=== PATIENT | male | born 1960 | race Caucasian/White ===

== ENCOUNTER 2017-12-11 08:27 | Inpatient (IN) | payer OTHER ==
[2017-11-20 10:35] VITALS: Ht 176.5 cm; Wt 128.8 kg
--- NOTE | 2017-11-20 11:26 | PAT Medication Instructions ---
Service Date Nov 20, 2017. Current Home Medication List Albuterol Hfa (Ventolin Hfa), 2-4 PUFFS INH Q6H PRN for SOB/Wheezing Aspirin Enteric Coated (Ecotrin Or Generic), 81 MG PO QAM Citalopram Hydrobromide (Celexa), 20 MG PO QPM Ergocalciferol (Vitamin D 57703 Unit), 50,000 UNIT PO WED/SUN Finasteride (Proscar), 5 MG PO QPM Fluticasone Prop/Salmeterol (Advair Diskus 250/50 60 Dose), 1 PUFF INH BID Gabapentin (Neurontin), 100 MG PO BID Losartan Potassium (Cozaar), 100 MG PO QAM Metoprolol Tartrate (Lopressor) (Lopressor), 25 MG PO BID Multivitamin (Multivitamin), 1 TAB PO QPM Omeprazole (Prilosec), 40 MG PO QAM Medication Instructions For Your Scheduled Surgery -Continue as directed: Ergocalciferol (Vitamin D 03017 Unit), 50,000 UNIT PO WED/SUN - Hold the following medications the morning of surgery: Losartan Potassium (Cozaar), 100 MG PO QAM - Contact your bilingual manager and surgeon for instructions for: Aspirin Enteric Coated (Ecotrin Or Generic), 81 MG PO QAM - Take the following medications the morning of surgery with a sip of water: Albuterol Hfa (Ventolin Hfa), 2-4 PUFFS INH Q6H PRN for SOB/Wheezing (if needed , and bring it with you to the hospital) Fluticasone Prop/Salmeterol (Advair Diskus 250/50 60 Dose), 1 PUFF INH BID Gabapentin (Neurontin), 100 MG PO BID Metoprolol Tartrate (Lopressor) (Lopressor), 25 MG PO BID Omeprazole (Prilosec), 40 MG PO QAM - Take the following medications as scheduled the night before surgery: Albuterol Hfa (Ventolin Hfa), 2-4 PUFFS INH Q6H PRN for SOB/Wheezing (if needed) Citalopram Hydrobromide (Celexa), 20 MG PO QPM Finasteride (Proscar), 5 MG PO QPM Fluticasone Prop/Salmeterol (Advair Diskus 250/50 60 Dose), 1 PUFF INH BID Gabapentin (Neurontin), 100 MG PO BID Metoprolol Tartrate (Lopressor) (Lopressor), 25 MG PO BID Multivitamin (Multivitamin), 1 TAB PO QPM If you have any questions please call us at [phone] or [phone] or [phone]
[2017-11-20 12:34] LABS: BASO % 0.3 %; BASO ABS # 0.02 K/uL (0-0.2); EOS % 1.3 %; HEMATOCRIT 36.7 % (42-52); HEMOGLOBIN 13.2 g/dL (14.0-18.0); IG# 0.02 K/uL (0.00-0.02); LYMPH % 24.6 %; LYMPH ABS # 1.89 K/uL (1.2-3.4); MEAN CELL VOLUME 84.4 fL (80-100); MEAN CORPUSCULAR HEMOGLOBIN 30.3 pg (25-34); MEAN PLATELET VOLUME 11.7 fL (7.4-10.4); MONO % 6.6 %; MONO ABS # 0.51 K/uL (0.11-0.59); NEUT % 66.9 %; NEUT ABS # 5.14 K/uL (1.4-6.5); PLATELET COUNT 188 K/uL (130-400); RED CELL DISTRIBUTION WIDTH CV 13.6 % (11.5-14.5); WHITE BLOOD COUNT 7.68 K/uL (4.8-10.8)
[2017-11-20 12:40] LABS: PTT PATIENT 26.4 SECONDS (21.0-31.0)
[2017-11-20 13:09] LABS: ALBUMIN 3.7 gm/dl (3.4-5.0); CALCIUM 8.9 mg/dl (8.5-10.1); CREATININE 1.12 mg/dl (0.60-1.40); POTASSIUM 4.2 mmol/L (3.5-5.1)
[2017-11-20 13:12] LABS: HEMOGLOBIN A1C 6.3 % (4.5-5.6)
--- NOTE | 2017-12-09 15:02 | History and Physical ---
History & Physical Date Dec 09, 2017. Chief Complaint right knee pain History of Present Illness The patient is a 57 year old male with complaints of chronic right knee pain for many years. He has been treated conservatively for multiple years but failed conservative management. He is now being set up for surgical management. Past Medical/Surgical History PMH: Aortic valve insufficiency and hx of aortic valve replacement, hearing loss , GERD, HTN, BPH, Asthma Past surgical hx: heart catheterization, aortic valve replacement, colonoscopy, right knee scope Fam. hx: noncontributory Social hx: Nonsmoker, occasional alcohol Allergies Coded Allergies: Ciprofloxacin (Verified Allergy, Unknown, BURNING AT INFUSION SITE RADIATING UP ARM, 11/20/17) Home Medications Scheduled Aspirin Enteric Coated (Ecotrin Or Generic), 81 MG PO QAM Citalopram Hydrobromide (Celexa), 20 MG PO QPM Ergocalciferol (Vitamin D 12417 Unit), 50,000 UNIT PO WED/SUN Finasteride (Proscar), 5 MG PO QPM Fluticasone Prop/Salmeterol (Advair Diskus 250/50 60 Dose), 1 PUFF INH BID Gabapentin (Neurontin), 100 MG PO BID Losartan Potassium (Cozaar), 100 MG PO QAM Metoprolol Tartrate (Lopressor) (Lopressor), 25 MG PO BID Multivitamin (Multivitamin), 1 TAB PO QPM Omeprazole (Prilosec), 40 MG PO QAM Scheduled PRN Albuterol Hfa (Ventolin Hfa), 2-4 PUFFS INH Q6H PRN for SOB/Wheezing Physical Examination Skin: warm/dry, no rash Eyes: normal inspection ENT: normal ENT inspection Head: normocephalic, atraumatic Neck: supple, no adenopathy, trachea midline Respiratory/Chest: lungs clear, normal breath sounds, no respiratory distress Cardiovascular: regular rate, rhythm Abdomen / GI: normal bowel sounds, non tender Extremities: + pertinent finding (Right knee: antalgic gait, painful PROM, + effusion. Tender at the medial and lateral joint spaces. +Crepitation. -5 degree extension to 110 degrees flexion.) Neurologic/Psych: no motor/sensory deficits, alert, oriented x 3 Diagnosis Right knee DJD Right knee flexion contracture Plan of Treatment Recommend a right TKA. All potential risks, benefits, complications, alternatives, and rehab have been discussed with the patient. At this time he wishes to proceed as indicated. He will be scheduled for 12.11.17 with ASA 81 mg BID x 30 days for DVT prophylaxis.
[2017-12-11] VITALS (9 sets, daily range): BP systolic 107–133; BP diastolic 64–84; PULSE 69–98; TEMP 36.4–37.3; O2SAT 97–99
[~2017-12-11] VITALS: Ht 176.5 cm; Wt 128.8 kg
[~2017-12-11 08:27] MED LIST: ACETAMINOPHEN 500 MG TAB PO SCH; ADVIN25/60 INH; ASPI81TA21 PO; BUPIVACAINE 0.5 % 5 MG/1 ML PF 10ML VIAL ONE; CEFAZOLIN 3000MG IV PUSH 22.5 ML IV SCH; CITA20TA9 PO; CeleBREX 200 MG CAP PO SCH; DEXAMETHASONE 4 MG TAB PO SCH; ERGO500037 PO; FAMOTIDINE 20 MG TAB PO SCH; FINA5TAB PO; GABA-112 PO; GABAPENTIN 600 MG PO SCH; LACTATED RINGER'S 1000ML 1,000 ML IV SCH; LACTATED RINGER'S 1000ML 500 ML IV SCH; LOSA1TAB38 PO; METO25TA56 PO; METOCLOPRAMIDE HCL 10 MG TAB PO SCH; MULT-506 PO; PRLSR20 PO; ROPIVACAINE 5MG/ML 30 ML 150 MG, BUPIVACAINE 0.5% MPF INJ 30 ML, EpINEphrine HCL INJ 0.... INFIL SCH; VNTHFA/IN INH
[2017-12-11] MEDS ORDERED: PROPOFOL IV EMULSION 10 MG/ML 20 ML VIAL IV ONE ×4 (09:05→12:35)
[2017-12-11] MEDS ORDERED: FENTANYL CITRATE INJ 50 MCG/1 ML 2 ML VIAL ONE (09:05)
[2017-12-11] MEDS ORDERED: ONDANSETRON INJ 2 MG/ML 2 ML VIAL ONE (09:05)
[2017-12-11] MEDS ORDERED: MIDAZOLAM HCL 1 MG/ML 2ML VIAL ONE ×2 (09:05→12:33)
[2017-12-11] MEDS ORDERED: LIDOCAINE HCL 2% 2 ML VIAL (20MG/ML) ONE (09:05)
[2017-12-11] MEDS ORDERED: DEXAMETHASONE SOD INJ 4 MG/ML VIAL ONE (09:05)
--- NOTE | 2017-12-11 09:27 | History & Physical Bridge Note ---
H&P Re-Evaluation Bridge Note: I have examined the patient, reviewed the History & Physical and in the interval since the performance of the History & Physical I have noted the following changes of clinical significance: No changes noted
[2017-12-11] MEDS ORDERED: POVIDONE-IODINE OP SOLN 30 ML BTL ONE (09:53)
[2017-12-11] MEDS ORDERED: BACITRACIN 50000 UNIT VIAL ONE (09:53)
[2017-12-11] MEDS ORDERED: ORTHO JOINT ANESTHETIC ONE (09:53)
[2017-12-11] MEDS ORDERED: SILVER SULFADIAZINE 1% CR 50 GM JAR EXT PRN (10:15)
[2017-12-11] MEDS ORDERED: MAGNESIUM HYDROXIDE SUSP 30 ML UDC PO PRN (10:15)
[2017-12-11] MEDS ORDERED: MoRPHine SULFATE 2 MG/ML CARP IV PRN (10:15)
[2017-12-11] MEDS ORDERED: SOD PHOSPHATE/SOD BIPHOSPHATE ENEMA 132 ML BTL PR PRN (10:15)
[2017-12-11] MEDS ORDERED: CEFAZOLIN IV 2,000 MG in DEXTROSE 5% 50ML 50 ML IV SCH (10:15)
[2017-12-11] MEDS ORDERED: BISACODYL 10 MG SUPP PR PRN (10:15)
[2017-12-11] MEDS ORDERED: TAMSULOSIN HCL 0.4 MG CAP PO PRN (10:15)
[2017-12-11] MEDS ORDERED: ONDANSETRON INJ 2 MG/ML 2 ML VIAL IV PRN ×2 (10:15→11:00)
[2017-12-11] MEDS ORDERED: ZOLPIDEM TARTRATE 5 MG TAB PO PRN (10:15)
[2017-12-11] MEDS ORDERED: ALBUTEROL HFA 8 GM INHALER INH PRN (10:15)
[2017-12-11] MEDS ORDERED: ALUMINUM/MAGNESIUM/SIMETH (MAALOX MAX) 30 ML UDC PO PRN (10:15)
[2017-12-11] MEDS: TRANEXAMIC ACID INJ 1,000 MG x 2 Bags IV SCH ×4 (10:22→16:25)
[2017-12-11] MEDS ORDERED: HYDROmorphone INJ 1 MG/ML SYR IV PRN (11:00)
[2017-12-11] MEDS ORDERED: ATROPINE SULFATE 0.1 MG/ML 5ML SYR IV PRN (11:00)
[2017-12-11] MEDS ORDERED: FENTANYL CITRATE INJ 50 MCG/1 ML 2 ML VIAL IV PRN (11:00)
[2017-12-11] MEDS ORDERED: EpHEDrine SULFATE INJ 50 MG/ML AMP IV PRN (11:00)
--- NOTE | 2017-12-11 13:14 | [facility] Post Operative Brief Note ---
Immediate Operative Summary Operative Date Dec 11, 2017. Pre-Operative Diagnosis Right knee Degenerative Joint Disease Right knee flexion contracture Post-Operative Diagnosis Right knee Degenerative Joint Disease Right knee flexion contracture Procedure(s) Performed Right total Knee Arthroplasty-Cemented Surgeon Dr. Chadwick Lead Ruby On Rails Developer Surgeon(s) Chris Clark PA-C Estimated Blood Loss 15 ml Findings Consistent with Post-Op Diagnosis Specimens A. Right knee bone and tissue Drains HV x 2 Anesthesia Type Spinal MAC (regional and intraarticular) Complication(s) none Disposition Accompanied Pt To Recover: no Disposition: Recovery Room / PACU
--- NOTE | 2017-12-11 13:45 | OPERATIVE REPORT ---
DATE OF OPERATION: 12/11/2017 PREOPERATIVE DIAGNOSES: 1. Right knee degenerative joint disease. 2. Mild flexion contracture, right knee. POSTOPERATIVE DIAGNOSES: Same. PROCEDURE: Right total knee arthroplasty using a [employer] II MRI matched total knee arthroplasty with size 6 femur, size 5 tibia, a 12-mm posterior stabilized polyethylene and a 38-mm patella. SURGEON: Sabino Chadwick DO BINDERY OPERATOR: Chris Clark PA-C, who was present for patient positioning, sterile prep and drape, management of retractors and instruments. He was present through the critical portions of the case including wound closure, application of sterile dressing and transport of the patient to recovery. ANESTHESIA: Spinal, monitored anesthesia care with adductor canal block and intra-articular local. SPECIMENS: Bone and tissue from the right knee. DRAINS: Hemovac x2. COMPLICATIONS: None. BLOOD LOSS: 15 mL. 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 He developed degenerative arthritis of the right knee. He attempted conservative management over several years including anti-inflammatories, use of an assistive device, physical therapy, physician directed home exercise, intra-articular steroid injections and intraarticular hyaluronic acid injections. The patient failed all measures. The patient had a radiograph of the right knee, which demonstrated a significant joint space loss with marginal osteophytes, subchondral sclerosis and formation of subchondral cysts. The patient was then scheduled for surgery as indicated. All potential risks, benefits, complications, alternatives, rehab, potential for incomplete relief of symptoms, need for surgery, DVT, PE, , persistent pain, swelling, scarring, weakness, neurovascular injury, wound complications, hardware failure, nonunion, and malunion were discussed with the patient. The patient decided to proceed with the procedure as indicated. DESCRIPTION OF PROCEDURE: The patient was taken to the Operating Suite and placed supine on the Operating Room table after the patient had been administered spinal epidural anesthetic and an adductor canal block in the preop holding area. The patient was sedated. Proper operative site was identified. The tourniquet was placed high on the right lower extremity. Right lower extremity was then sterilely prepped and draped in the usual fashion. Elevated and exsanguinated with an Esmarch bandage. Tourniquet inflated to 350 mmHg. Next a midline 10-blade scalpel incision was made directly over the midline of the distal femur and the medial one-third of the patella extending to the level of the tibial tubercle. The incision was deepened through the subcutaneous tissue and meticulous hemostasis was achieved with electrocautery. Full-thickness skin flaps were developed taking care to avoid neurovascular bundles. Next, median parapatellar capsular incision was made 10-blade scalpel after the superior medial corner had been marked with a marking pen for later reapproximation. Next, patella was everted. Soft tissue releases were performed of the knee including along the anterior medial corner to the level of the MCL which was protected and released adjacent to the MCL with Cui elevator. Fat pad was resected anteriorly and small half jesus portion of tissue was resected at the superior margin of the dermal articular surface. Next, the patella thickness was measured with caliper and held in everted position with Eron. Next, sagittal saw was used to make orthogonal cuts to the level of the patellar nose. Caliper was used to remeasure the patella and the appropriate sized patellar button, in this case size 38 mm was felt to be most appropriate. The alignment guide was then put in place. Peg holes were drilled and alignment guide was then removed. Next, the femoral cutting block was placed in the distal aspect of the femur and pinned in place. Next the distal femoral cut was made based off the patient's anatomy and MRI patient matched cutting block. Next, a size #6 distal 4-in-1 cutting block was tamped in place then stabilized with pins. Next, the appropriate soft tissue retraction was made and anterior chamfer and posterior chamfer cuts were made with the sagittal saw. Next, the 4-in-1 cutting block was then removed followed by removal of all bone fragments. Next, attention was then directed toward the proximal tibia. Blunt Joana was placed posterior to the tibia to protract it anteriorly and medial and lateral sharp Joana retractors were placed. Soft tissue and portion of the menisci were then resected at this time and MRI matched proximal tibial cutting block was then pinned in place and proximal tibial cut was made with sagittal saw. Alignment guide was removed. Pins were removed and the proximal fragment of the tibia was then sharply excised and removed. Next, proximal tibial tray trial size 5 was then pinned in place and this was felt to be well matched for the patient's anatomy, pinned in place and keel punch was then utilized with danya. Keel punch was then removed and cervical laminar cabinet installer was then placed in the medial compartment. The lateral compartment was then inspected for osteophytes and soft tissue impingement. There was found to be none. I then switched to the lateral compartment and medial compartment was then debrided of any soft tissue impingement. Next the laminar cabinet installer was removed and the femoral trial, in this case size #6 was then malleted in place, pinned and then femoral notch milling guide was then placed anteriorly. This was then reamed and then punched with sharp punch and mallet. Next, the distal aspect of the femur was then inserted in notch guide and size 12-mm poly was inserted, reduced. Patellar button was then placed in trial and range of motion was performed. Next after range of motion and stability test was performed the implants were found to be appropriate size. Trials were all removed. The posterior capsule was injected with Orthomix. An 18 gauge spinal needle was used to perform a fractional lengthening of the lateral collateral ligament and iliotibial band. Next the joint was then cleansed with pulsatile lavage using approximately 3 liters normal saline with Bacitracin additive. Next all bony surfaces were the suctioned and drained and standard cementing technique was performed with antibiotic cement and all excess cement was then removed from around the implant site. A 12-mm posterior stabilized polyethylene bearing was implanted and checked for stability. The patellar button was then cemented in place and held in place with patellar clamp. Next, double lumen 10 Slovak Hemovac drain was then placed and exiting anterolaterally and the capsule was closed using interrupted #1 Vicryl sutures. The dermis was closed using buried interrupted 2-0 Vicryl and the skin closed with skin sharron. A sterile compressive dressing was applied from the toes to the groin and overwrapped with Ash wrap. Tourniquet was released. The patient was awakened and taken to recovery in stable condition. I attest to the content of the Intraoperative Record and any orders documented therein. Any exceptions are noted below. MARY
--- NOTE | 2017-12-11 13:48 | DIAGNOSTIC IMAGING REPORT ---
R KNEE 1 OR 2 VIEWS ROUTINE HISTORY: 57 years-old Male AP/LATERAL IN PACU RIGHT KNEE right knee total joint arthroplasty. Degenerative joint disease. COMPARISON: None available TECHNIQUE: 2 views of the right knee FINDINGS: Postoperative changes from recent right knee total joint arthroplasty and patella resurfacing. Alignment is satisfactory without periprosthetic fracture or retained foreign body identified. Anterior midline skin sharron are noted in addition to a surgical drain and expected postsurgical soft tissue swelling with deep tissue air. IMPRESSION: Right knee total joint arthroplasty and patellar resurfacing without complication. The above report was generated using voice recognition software. It may contain grammatical, syntax or spelling errors. Electronically signed by: Adams Leyva M.D. 12/11/2017 1:47 PM Dictated Date/Time: 12/11/2017 1:46 PM
--- NOTE | 2017-12-11 14:20 | Anesthesiology Progress Note ---
Anesthesia Post Op Note Date & Time Dec 11, 2017 at 14:20 Vital Signs Pain Intensity: 0 Vital Signs Past 12 Hours Date Time Temp Pulse Resp B/P (MAP) Pulse Ox O2 Delivery O2 Flow Rate FiO2 12/11/17 13:43 36.4 91 16 139/77 98 Nasal Cannula 3 12/11/17 10:01 36.5 69 18 133/84 99 Room Air Notes Mental Status: alert / awake / arousable, participated in evaluation Pt Amnestic to Procedure: Yes Nausea / Vomiting: adequately controlled Pain: adequately controlled Airway Patency, RR, SpO2: stable & adequate BP & HR: stable & adequate Hydration State: stable & adequate Neuraxial Anesthesia: was administered, sensory block is resolving Anesthetic Complications: no major complications apparent
[2017-12-11] MEDS ORDERED: D5W AND 1/2NSS + 20MEQ KCL 1,000 ML IV SCH (16:00)
[2017-12-11] MEDS: KETOROLAC TROMETHAMINE 30 MG/ML VIAL IV. SCH ×2 (16:26→21:06)
[2017-12-11] MEDS: CEFAZOLIN IV 2,000 MG in SYRINGE 0 ML IV SCH (16:27)
--- NOTE | 2017-12-11 18:24 | Medical Consult ---
Consultation Date of Consultation: Dec 11, 2017. Attending Physician: Sabino Chadwick D.O. Reason for Consultation: Post-op medical management History of Present Illness This is a 57-year-old male with a past medical history of HTN, asthma, s/p aortic valve replacement, osteoarthritis and other medical problems listed below who is POD#0 s/p R TKA by Dr. Chadwick. Patient is doing well postoperatively. States that his pain level is currently 0/10. Was able to move around in room with limited pain. Has not yet urinated or had a bowel movement post-operatively. Denies any fever, chills, lightheadedness, headache, visual changes, chest pain, shortness of breath, abdominal pain, nausea, vomiting, numbness/tingling in extremities or LE swelling. Has a history of a prosthetic aortic valve replacement in 2008 for which he was on Coumadin for 6 months before it was discontinued. Continues to take baby aspirin daily, which has been held since Thursday pre-operatively. Has a dilated aortic root that is stable at 4 cm (see most recent CT scan in 05/2017). Follows with Mallika L[facility] at [facility]. Past Medical/Surgical History Medical Problems: (1) Asthma Status: Chronic (2) BPH (benign prostatic hyperplasia) Status: Chronic (3) Dilated aortic root Permanent Comment: Stable at 4cm (per CT scan in 05/2017) Status: Chronic (4) GERD (gastroesophageal reflux disease) Status: Chronic (5) HTN (hypertension) Status: Chronic (6) Mood disorder Status: Chronic (7) Osteoarthritis of right knee Status: Chronic Surgical Problems: (1) S/P aortic valve replacement with bioprosthetic valve Permanent Comment: 2008 Status: Chronic (2) S/P cholecystectomy Status: Chronic Family History Diabetes mellitus FH: heart disease Hypertension Social History Smoking Status: Never Smoker Alcohol Use: occasionally Marital Status: Housing Status: lives with family Occupation Status: employed Allergies Coded Allergies: Ciprofloxacin (Verified Allergy, Unknown, BURNING AT INFUSION SITE RADIATING UP ARM, 12/11/17) Home Medications Reported Home Medications Medications Dose Route/Sig Max Daily Dose Days Date Category Vitamin D 89110 Unit (Ergocalciferol) 50,000 Unit Cap 50,000 Unit PO WED/SUN 11/20/17 Reported Prilosec (Omeprazole) 20 Mg Capcr 40 Mg PO QAM 11/20/17 Reported Lopressor (Metoprolol Tartrate) 25 Mg Tab 25 Mg PO BID 11/20/17 Reported Cozaar (Losartan Potassium) 100 Mg Tab 100 Mg PO QAM 11/20/17 Reported Neurontin (Gabapentin) 100 Mg Cap 100 Mg PO BID 11/20/17 Reported Proscar (Finasteride) 5 Mg Tab 5 Mg PO QPM 11/20/17 Reported Celexa (Citalopram Hydrobromide) 20 Mg Tab 20 Mg PO QPM 11/20/17 Reported Ventolin Hfa (Albuterol) 200 Puffs/51926 Mcg Aers 2-4 Puffs INH Q6H PRN 11/20/17 Reported Advair Diskus 250/50 60 Dose (Fluticasone Prop/Salmeterol) 1 Ea Aerp 1 Puff INH BID 11/20/17 Reported Multivitamin (Multivitamins) Tab 1 Tab PO QPM 11/07/11 Reported Ecotrin Or Generic (Aspirin) 81 Mg Tab 81 Mg PO QAM 11/07/11 Reported Current Inpatient Medications Current Inpatient Medications Medications (Trade) Dose Ordered Sig/Katherine Route Start Time Stop Time Status Last Admin Dose Admin Potassium Chloride/Dextrose/ Sod Cl 1,000 ml @ 100 mls/hr Q10H IV 12/11/17 16:00 12/12/17 15:59 12/11/17 17:58 100 MLS/HR Ketorolac Tromethamine (Toradol Inj) 30 mg Q6H IV. 12/11/17 16:00 12/12/17 15:59 12/11/17 16:26 30 MG Celecoxib (CeleBREX CAP) 200 mg BID PO 12/12/17 21:00 01/11/18 20:59 Oxycodone HCl (Roxicodone Immediate Rel Tab) 1 TABLET FOR PAIN RATING... Q4H PRN PO 12/11/17 10:15 12/25/17 10:14 Morphine Sulfate (MoRPHine SULFATE INJ) 2 mg Q1HWA PRN IV 12/11/17 10:15 12/25/17 10:14 Acetaminophen (Tylenol Tab) 1,000 mg Q8H PO 12/11/17 22:00 01/10/18 21:59 Magnesium Hydroxide (Milk Of Magnesia Susp) 30 ml Q6H PRN PO 12/11/17 10:15 01/10/18 10:14 Bisacodyl (Dulcolax Supp) 10 mg DAILY PRN ID 12/11/17 10:15 01/10/18 10:14 Sodium Biphosphate/ Sodium Phosphate (Fleet Enema) 132 ml DAILY PRN ID 12/11/17 10:15 01/10/18 10:14 Senna (Senokot Tab) 17.2 mg HS PO 12/11/17 21:00 01/10/18 20:59 Docusate Sodium (coLACE CAP) 100 mg BID PO 12/11/17 21:00 01/10/18 20:59 Diphenhydramine HCl (Benadryl Cap) 25 mg Q8H PRN PO 12/11/17 10:15 01/10/18 10:14 Al Hydrox/Mg Hydrox/Simethicone (Maalox Max Susp) 15 ml Q4H PRN PO 12/11/17 10:15 01/10/18 10:14 Zolpidem Tartrate (Ambien Tab) 5 mg HSZ PRN PO 12/11/17 10:15 01/10/18 10:14 Multivitamins (Multivitamin Tab) 1 tab QAM PO 12/12/17 09:00 01/11/18 08:59 Ondansetron HCl (Zofran Inj) 4 mg Q6H PRN IV 12/11/17 10:15 01/10/18 10:14 Silver Sulfadiazine (Silvadene 1% Crm 50GM Jar) 1 appln BID PRN EXT 12/11/17 10:15 01/10/18 10:14 Tamsulosin HCl (Flomax Cap) 0.4 mg QAM PRN PO 12/11/17 10:15 01/10/18 10:14 Tranexamic Acid 1000 mg/Sodium Chloride 110 ml @ 660 mls/hr TODAY@2000 ONCE IV 12/11/17 20:00 12/11/17 20:09 Aspirin (Ecotrin Tab) 81 mg BID PO 12/11/17 21:00 01/10/18 20:59 Albuterol (Ventolin Hfa Inhaler) 2 puffs Q6H PRN INH 12/11/17 10:15 01/10/18 10:14 Citalopram Hydrobromide (celeXA TAB) 20 mg QPM PO 12/11/17 21:00 01/10/18 20:59 Cholecalciferol (Vitamin D Tab) 1,000 inter.unit DAILY PO 12/12/17 09:00 01/11/18 08:59 Finasteride (Proscar Tab) 5 mg QPM PO 12/11/17 21:00 01/10/18 20:59 Salmeterol Xinafoate/ Fluticasone (Advair Diskus 250/50 Inh) 1 puff BID INH 12/11/17 21:00 01/10/18 20:59 Gabapentin (Neurontin Cap) 100 mg BID PO 12/11/17 21:00 01/10/18 20:59 Losartan Potassium (coZAAR TAB) 100 mg QAM PO 12/12/17 09:00 01/11/18 08:59 Metoprolol Tartrate (Lopressor Tab) 25 mg BID PO 12/11/17 21:00 01/10/18 20:59 Pantoprazole Sodium (Protonix Tab) 40 mg QAM PO 12/12/17 09:00 01/11/18 08:59 Cefazolin Sodium 2000 mg/Syringe 15 ml @ 3.75 mls/ min Q8H IV 12/11/17 19:00 12/12/17 03:03 12/11/17 16:27 3.75 MLS/MIN Review of Systems Ten systems reviewed and negative except as noted in the HPI. Physical Exam Date Time Temp Pulse Resp B/P (MAP) Pulse Ox O2 Delivery O2 Flow Rate FiO2 12/11/17 17:59 98 132/83 (99) Nasal Cannula 2.0 12/11/17 16:42 36.4 74 18 121/75 (90) 97 Nasal Cannula 2.0 12/11/17 16:23 36.9 77 18 129/77 (94) 98 Nasal Cannula 2.0 12/11/17 15:15 37.2 74 11 123/79 (94) 98 Nasal Cannula 2.0 12/11/17 14:45 Nasal Cannula 12/11/17 14:45 37.3 79 16 116/70 (85) 97 Nasal Cannula 2.0 12/11/17 14:36 36.6 124/73 12/11/17 14:35 75 14 98 12/11/17 14:35 75 14 12/11/17 14:31 124/74 12/11/17 14:30 75 22 12/11/17 14:30 74 22 99 12/11/17 14:26 130/76 12/11/17 14:25 75 18 98 12/11/17 14:25 76 18 12/11/17 14:21 131/75 12/11/17 14:20 74 16 12/11/17 14:20 74 16 98 12/11/17 14:16 132/78 12/11/17 14:15 74 16 12/11/17 14:15 74 16 99 12/11/17 14:11 130/76 12/11/17 14:10 76 17 99 12/11/17 14:10 76 17 12/11/17 14:06 133/78 12/11/17 14:05 75 14 98 12/11/17 14:05 75 14 12/11/17 14:01 127/77 12/11/17 14:00 76 18 98 12/11/17 14:00 76 18 12/11/17 13:56 131/77 12/11/17 13:55 77 10 12/11/17 13:55 77 10 98 12/11/17 13:51 131/79 12/11/17 13:50 79 15 12/11/17 13:50 80 15 98 12/11/17 13:46 130/75 12/11/17 13:45 84 17 12/11/17 13:45 85 17 98 12/11/17 13:43 36.4 91 16 139/77 98 Nasal Cannula 3 12/11/17 13:41 129/76 12/11/17 13:40 84 21 12/11/17 13:40 83 21 99 12/11/17 10:01 36.5 69 18 133/84 99 Room Air General Appearance: WD/WN, no apparent distress, + pertinent finding (Resting comfortably) Head: normocephalic, atraumatic Eyes: normal inspection, PERRL, sclerae normal ENT: normal ENT inspection, hearing grossly normal, pharynx normal (moist mucous membranes ) Neck: supple, thyroid normal, trachea midline Respiratory/Chest: chest non-tender, lungs clear, normal breath sounds, no respiratory distress, no accessory muscle use Cardiovascular: regular rate, rhythm, normal peripheral pulses, + systolic murmur Abdomen/GI: non tender, soft, no organomegaly Back: normal inspection Extremities/Musculoskelatal: normal inspection, no calf tenderness, no pedal edema, + pertinent finding (R knee with dressing. Clean, dry, intact. Drain visualized. SCDs, teds.) Neurologic/Psych: no motor/sensory deficits, alert, normal mood/affect, oriented x 3 Skin: normal color, warm/dry, no rash Assessment & Plan This is a 57-year-old male with a past medical history of HTN, asthma, s/p aortic valve replacement, osteoarthritis and other medical problems listed below who is POD#0 s/p R TKA by Dr. Chadwick. R knee osteoarthritis s/p R TKA: -POD#[address] Chadwick -Pt is doing well post-operatively -Per ortho for pain control, wound care, anticoagulation and activities -Monitor H&H, continue incentive spirometry, PT/OT when appropriate HTN: -Normotensive -Continue losartan, metoprolol tartrate Asthma: -Stable. No SOB/wheezing -Cont Advair, albuterol PRN S/p aortic valve replacement: -Performed in 2008 -Completed 6 months on Coumadin -Recommend restarting aspirin once appropriate, per ortho Mood disorder: -Cont Celexa GERD: -Cont omeprazole BPH: -Cont Proscar Vitamin D deficiency: -Cont 50,000 IU Thu, Thu DVT Ppx: Teds, SCDs Dispo: per ortho Patient seen in collaboration with Dr. Dillon. Please see addendum. Will be followed by Dr. Doran for the remainder of admission. Thank you for this consultation. We will follow the patient with you during their hospital stay. You can reach a member of the [facility] Hospitalist Team 13/04 via pager @ [phone].
[2017-12-11] MEDS ORDERED: TRANEXAMIC ACID INJ 1,000 MG in SODIUM CHLORIDE 0.9% 100ML 100 ML IV ONE (20:00)
[2017-12-11] MEDS ORDERED: MULTIVITAMIN TAB PO SCH (21:00)
[2017-12-11] MEDS: CITALOPRAM 20 MG TAB PO SCH (21:01)
[2017-12-11] MEDS: FLUTICASONE/SALMETEROL 250/50 (ADVAIR) 14 PUFF/1 INHALER INH SCH (21:01)
[2017-12-11] MEDS: DOCUSATE SODIUM 100 MG CAP PO SCH (21:02)
[2017-12-11] MEDS: GABAPENTIN 100 MG CAP PO SCH (21:03)
[2017-12-11] MEDS: ASPIRIN 81 MG ECTAB PO SCH (21:03)
[2017-12-11] MEDS: SENNA 8.6 MG TAB PO SCH (21:04)
[2017-12-11] MEDS: FINASTERIDE 5 MG TAB PO SCH (21:05)
[2017-12-11] MEDS: ACETAMINOPHEN 500 MG TAB PO SCH (21:05)
[2017-12-11] MEDS: METOPROLOL TARTRATE 25 MG TAB PO SCH (21:14)
[2017-12-12] MEDS: KETOROLAC TROMETHAMINE 30 MG/ML VIAL IV. SCH ×2 (03:25→10:08)
[2017-12-12] MEDS: CEFAZOLIN IV 2,000 MG in SYRINGE 0 ML IV SCH (03:25)
[2017-12-12 03:33] VITALS: BP 114/67; PULSE 71; TEMP 36.6; O2SAT 97
[2017-12-12] MEDS: ACETAMINOPHEN 500 MG TAB PO SCH ×3 (05:30→20:30)
[2017-12-12 06:13] LABS: HEMATOCRIT 32.7 % (42-52); HEMOGLOBIN 11.7 g/dL (14.0-18.0); MEAN CELL VOLUME 84.5 fL (80-100); MEAN CORPUSCULAR HEMOGLOBIN 30.2 pg (25-34); MEAN CORPUSCULAR HGB CONC 35.8 g/dl (32-36); MEAN PLATELET VOLUME 11.6 fL (7.4-10.4); PLATELET COUNT 200 K/uL (130-400); RED CELL DISTRIBUTION WIDTH SD 42.8 fL (36.4-46.3); WHITE BLOOD COUNT 16.23 K/uL (4.8-10.8)
[2017-12-12 06:48] LABS: CALCIUM 8.3 mg/dl (8.5-10.1); CREATININE 1.33 mg/dl (0.60-1.40)
[2017-12-12 07:21] VITALS: BP 129/70; PULSE 66; TEMP 36.4; O2SAT 97
--- NOTE | 2017-12-12 08:35 | Orthopedic Progress Note ---
Orthopedic Progress Note Date of Service Dec 12, 2017. Subjective Post OP Day: 1 Reports: feeling well, Denies: chest pain, SOB, nausea / vomiting, light headedness, calf pain Objective calves soft nontender, N/V intact, capillary refill less than 2 sec., dressing C /D/I, A&O x3, toes mobile, hemovac drainage (350/175CC PER SHIFT) Date Time Temp Pulse Resp B/P (MAP) Pulse Ox O2 Delivery O2 Flow Rate FiO2 12/12/17 07:21 36.4 66 19 129/70 (89) 97 Room Air 12/12/17 03:33 36.6 71 16 114/67 (83) 97 Room Air 12/11/17 23:26 37.2 73 16 107/64 (78) 99 Nasal Cannula 2.0 12/11/17 21:11 80 126/76 (93) 12/11/17 19:55 Nasal Cannula 12/11/17 19:30 36.5 80 18 132/73 (92) 97 Nasal Cannula 2.0 12/11/17 17:59 98 132/83 (99) Nasal Cannula 2.0 12/11/17 16:42 36.4 74 18 121/75 (90) 97 Nasal Cannula 2.0 12/11/17 16:23 36.9 77 18 129/77 (94) 98 Nasal Cannula 2.0 12/11/17 15:15 37.2 74 11 123/79 (94) 98 Nasal Cannula 2.0 12/11/17 14:45 Nasal Cannula 12/11/17 14:45 37.3 79 16 116/70 (85) 97 Nasal Cannula 2.0 12/11/17 14:36 36.6 124/73 12/11/17 14:35 75 14 98 12/11/17 14:35 75 14 12/11/17 14:31 124/74 12/11/17 14:30 75 22 12/11/17 14:30 74 22 99 12/11/17 14:26 130/76 12/11/17 14:25 75 18 98 12/11/17 14:25 76 18 12/11/17 14:21 131/75 12/11/17 14:20 74 16 12/11/17 14:20 74 16 98 12/11/17 14:16 132/78 12/11/17 14:15 74 16 12/11/17 14:15 74 16 99 12/11/17 14:11 130/76 12/11/17 14:10 76 17 99 12/11/17 14:10 76 17 12/11/17 14:06 133/78 12/11/17 14:05 75 14 98 12/11/17 14:05 75 14 12/11/17 14:01 127/77 12/11/17 14:00 76 18 98 12/11/17 14:00 76 18 12/11/17 13:56 131/77 12/11/17 13:55 77 10 12/11/17 13:55 77 10 98 12/11/17 13:51 131/79 12/11/17 13:50 79 15 12/11/17 13:50 80 15 98 12/11/17 13:46 130/75 12/11/17 13:45 84 17 12/11/17 13:45 85 17 98 12/11/17 13:43 36.4 91 16 139/77 98 Nasal Cannula 3 12/11/17 13:41 129/76 12/11/17 13:40 84 21 12/11/17 13:40 83 21 99 12/11/17 10:01 36.5 69 18 133/84 99 Room Air Laboratory Results 24 Hours: Test 12/12/17 05:30 Hematocrit 32.7 % Hemoglobin 11.7 g/dL Assessment & Plan Assessment: POD#1 SP RIGHT TKA Plan: PT/OT DVT PROPH- ASA 81MG BID PAIN MANAGEMENT- LORENZA, TYLENOL, CELEBREX DC PLANNING- PATIENT PLANNING FOR OUTPATIENT PT. PLAN ON DC TOMORROW DUE TO HIGH HEMOVAC OUTPUT.
[2017-12-12] MEDS: ASPIRIN 81 MG ECTAB PO SCH ×2 (08:49→20:29)
[2017-12-12] MEDS: DOCUSATE SODIUM 100 MG CAP PO SCH ×2 (08:49→20:28)
[2017-12-12] MEDS: METOPROLOL TARTRATE 25 MG TAB PO SCH ×2 (08:49→20:28)
[2017-12-12] MEDS: FLUTICASONE/SALMETEROL 250/50 (ADVAIR) 14 PUFF/1 INHALER INH SCH ×2 (08:49→20:29)
[2017-12-12] MEDS: PANTOprazole SOD 40 MG TAB PO SCH (08:50)
[2017-12-12] MEDS: LOSARTAN POTASSIUM 50 MG TAB PO SCH (08:50)
[2017-12-12] MEDS: GABAPENTIN 100 MG CAP PO SCH ×2 (08:50→20:29)
[2017-12-12] MEDS: CHOLECALCIFEROL 1000 INTER.UNIT TAB PO SCH (08:51)
[2017-12-12] MEDS: OXYCODONE HCL IR 5 MG TAB (IMMEDIATE RELEASE) PO PRN ×3 (08:51→20:31)
[2017-12-12] MEDS: MULTIVITAMIN TAB PO SCH (08:51)
[2017-12-12 14:00] VITALS: BP 120/68; PULSE 67; TEMP 36.4; O2SAT 98
[2017-12-12 15:17] VITALS: BP 128/78; PULSE 64; TEMP 37.2; O2SAT 98
--- NOTE | 2017-12-12 17:43 | Progress Note ---
Internal Med Progress Note Date of Service: Dec 12, 2017. Provider Documentation: SUBJECTIVE: The patient was seen and examined. She is status post right TKA, denies to have significant pain there. She does not have any other complaints. OBJECTIVE: Vital Signs-as noted below Exam: General-no acute distress at rest Eyes-normal ENT-normal Neck-supple Lungs-clear to auscultate bilaterally Heart-S1-S2 regular, no murmur appreciated Abdomen-benign, nontender, bowel sounds present Extremities-trace edema bilaterally Neuro-alert, awake, oriented 3 No focal sensory or motor deficit appreciated Lab data as noted below. Labs are unremarkable. ASSESSMENT & PLAN: This is a 57-year-old male with a past medical history of HTN, asthma, s/p aortic valve replacement, osteoarthritis and other medical problems listed below who is POD#0 s/p R TKA by Dr. Chadwick. R knee osteoarthritis s/p R TKA: -POD# 1by Dr. Chadwick -Pt is doing well post-operatively -Per ortho for pain control, wound care, anticoagulation and activities -Hb Stable Leukocytosis WCC -16K Likely reactive Doubt any infection Monitor HTN: -Normotensive -Continue losartan, metoprolol tartrate Asthma: -Stable. No SOB/wheezing -Cont Advair, albuterol PRN S/p aortic valve replacement: -Performed in 2008 -Completed 6 months on Coumadin -Continue home medications Mood disorder: -Cont Celexa GERD: -Cont omeprazole BPH: -Cont Proscar Vitamin D deficiency: -Cont 50,000 IU Wed, Sun DVT Ppx: Teds, SCDs Dispo: per ortho Medically stable Vital Signs: Date Time Temp Pulse Resp B/P (MAP) Pulse Ox O2 Delivery O2 Flow Rate FiO2 12/12/17 16:00 Room Air 12/12/17 15:17 37.2 64 18 128/78 (95) 98 Room Air 12/12/17 14:00 36.4 67 14 120/68 (85) 98 Room Air 12/12/17 08:30 Room Air 12/12/17 07:21 36.4 66 19 129/70 (89) 97 Room Air 12/12/17 03:33 36.6 71 16 114/67 (83) 97 Room Air 12/11/17 23:26 37.2 73 16 107/64 (78) 99 Nasal Cannula 2.0 12/11/17 21:11 80 126/76 (93) 12/11/17 19:55 Nasal Cannula 12/11/17 19:30 36.5 80 18 132/73 (92) 97 Nasal Cannula 2.0 12/11/17 17:59 98 132/83 (99) Nasal Cannula 2.0 Lab Results: Results Past 24 Hours Test 12/12/17 05:30 Range/Units White Blood Count 16.23 4.8-10.8 K/uL Red Blood Count 3.87 4.7-6.1 M/uL Hemoglobin 11.7 14.0-18.0 g/dL Hematocrit 32.7 42-52 % Mean Corpuscular Volume 84.5 80-100 fL Mean Corpuscular Hemoglobin 30.2 25-34 pg Mean Corpuscular Hemoglobin Concent 35.8 32-36 g/dl RDW Standard Deviation 42.8 36.4-46.3 fL RDW Coefficient of Variation 14.0 11.5-14.5 % Platelet Count 200 130-400 K/uL Mean Platelet Volume 11.6 7.4-10.4 fL Sodium Level 135 136-145 mmol/L Potassium Level 4.0 3.5-5.1 mmol/L Chloride Level 104 98-107 mmol/L Carbon Dioxide Level 22 21-32 mmol/L Anion Gap 9.0 3-11 mmol/L Blood Urea Nitrogen 24 7-18 mg/dl Creatinine 1.33 0.60-1.40 mg/dl Est Creatinine Clear Calc Drug Dose 80.0 ml/min Estimated GFR () 67.3 Estimated GFR (Non- 58.1 BUN/Creatinine Ratio 18.3 10-20 Random Glucose 187 70-99 mg/dl Calcium Level 8.3 8.5-10.1 mg/dl Hepatitis C Antibody Screen NEG NEG
[2017-12-12] MEDS: CeleBREX 200 MG CAP PO SCH (20:28)
[2017-12-12] MEDS: FINASTERIDE 5 MG TAB PO SCH (20:29)
[2017-12-12] MEDS: SENNA 8.6 MG TAB PO SCH (20:29)
[2017-12-12] MEDS: CITALOPRAM 20 MG TAB PO SCH (22:33)
[2017-12-12 22:50] VITALS: BP 116/68; PULSE 73; TEMP 37; O2SAT 98
[2017-12-13] MEDS: OXYCODONE HCL IR 5 MG TAB (IMMEDIATE RELEASE) PO PRN ×3 (01:51→11:36)
[2017-12-13] MEDS: ACETAMINOPHEN 500 MG TAB PO SCH (05:26)
[2017-12-13 05:52] LABS: HEMATOCRIT 31.6 % (42-52); HEMOGLOBIN 11.2 g/dL (14.0-18.0); MEAN CELL VOLUME 84.9 fL (80-100); MEAN CORPUSCULAR HEMOGLOBIN 30.1 pg (25-34); MEAN CORPUSCULAR HGB CONC 35.4 g/dl (32-36); MEAN PLATELET VOLUME 11.5 fL (7.4-10.4); PLATELET COUNT 166 K/uL (130-400); RED CELL DISTRIBUTION WIDTH CV 14.4 % (11.5-14.5); RED CELL DISTRIBUTION WIDTH SD 44.5 fL (36.4-46.3); WHITE BLOOD COUNT 9.32 K/uL (4.8-10.8)
[2017-12-13 06:21] VITALS: BP 119/70; PULSE 68; TEMP 36.8; O2SAT 97
[2017-12-13 06:24] LABS: CALCIUM 7.9 mg/dl (8.5-10.1); CREATININE 1.18 mg/dl (0.60-1.40); POTASSIUM 3.8 mmol/L (3.5-5.1)
[2017-12-13] MEDS: FLUTICASONE/SALMETEROL 250/50 (ADVAIR) 14 PUFF/1 INHALER INH SCH (07:36)
[2017-12-13] MEDS: LOSARTAN POTASSIUM 50 MG TAB PO SCH (07:37)
[2017-12-13] MEDS: PANTOprazole SOD 40 MG TAB PO SCH (07:37)
[2017-12-13] MEDS: CHOLECALCIFEROL 1000 INTER.UNIT TAB PO SCH (07:37)
[2017-12-13] MEDS: CeleBREX 200 MG CAP PO SCH (07:37)
[2017-12-13] MEDS: MULTIVITAMIN TAB PO SCH (07:37)
--- NOTE | 2017-12-13 08:15 | Orthopedic Progress Note ---
Orthopedic Progress Note Date of Service Dec 13, 2017. Subjective Post OP Day: 2 Reports: feeling well, Denies: chest pain, SOB, nausea / vomiting, light headedness, calf pain Objective calves soft nontender, N/V intact, capillary refill less than 2 sec., dressing C /D/I, A&O x3, toes mobile Date Time Temp Pulse Resp B/P (MAP) Pulse Ox O2 Delivery O2 Flow Rate FiO2 12/13/17 07:40 Room Air 12/13/17 06:21 36.8 68 18 119/70 (86) 97 Room Air 12/12/17 23:35 Room Air 12/12/17 22:50 37.0 73 16 116/68 (84) 98 Room Air 12/12/17 16:00 Room Air 12/12/17 15:17 37.2 64 18 128/78 (95) 98 Room Air 12/12/17 14:00 36.4 67 14 120/68 (85) 98 Room Air 12/12/17 08:30 Room Air Laboratory Results 24 Hours: Test 12/13/17 05:20 Hematocrit 31.6 % Hemoglobin 11.2 g/dL Assessment & Plan Assessment: POD#2 SP RIGHT TKA Plan: PT/OT DVT PROPH- ASA 81MG BID PAIN MANAGEMENT- LORENZA, TYLENOL, CELEBREX DC PLANNING- PATIENT PLANNING FOR OUTPATIENT PT. PLAN ON DC TODAY
[2017-12-13] MEDS ORDERED: ONDA-170 PO (08:20)
[2017-12-13] MEDS ORDERED: CLB200 PO (08:20)
[2017-12-13] MEDS ORDERED: ASPEC81 PO (08:20)
[2017-12-13] MEDS ORDERED: RXC5 PO (08:20)
[2017-12-13] MEDS ORDERED: SENN-61 PO (08:20)
[2017-12-13] MEDS ORDERED: ACET-24 PO (08:20)
[2017-12-13] MEDS: ASPIRIN 81 MG ECTAB PO SCH (08:21)
[2017-12-13] MEDS: DOCUSATE SODIUM 100 MG CAP PO SCH (08:21)
[2017-12-13] MEDS: GABAPENTIN 100 MG CAP PO SCH (08:21)
[2017-12-13] MEDS: METOPROLOL TARTRATE 25 MG TAB PO SCH (08:21)
--- NOTE | 2017-12-13 08:21 | Discharge Instructions ---
Discharge Instructions Date of Service Dec 13, 2017. Admission Reason for Admission: Right Knee Osteoarthritis Discharge Discharge Diagnosis / Problem: SP RIGHT TKA Discharge Goals Goal(s): Decrease discomfort, Improve function, Increase independence Activity Recommendations Activity Limitations: per Instructions/Follow-up section . Instructions / Follow-Up Instructions / Follow-Up ACTIVITY RECOMMENDATIONS: SELF CARE INSTRUCTIONS AFTER TOTAL KNEE REPLACEMENT A. You may need to continue a physical therapy program after discharge from the hospital. There are several options available to you. Your doctor will assist you in selecting the best one for you. 1. An out-patient facility 2 to 3 times a week for therapy or home therapy. 2. Continue working on all exercises taught to you in the hospital. Your goals should be to increase bending of your knee to 90 degrees and beyond and to fully straighten your knee. B. You may progress at your own pace from walking with a walker or crutches to a cane; then to no assistive devices. C. Make walking a part of your daily routine. Be up as much as comfortable with rest periods throughout the day. Rest with leg elevation is very important. Use the ice wrap frequently for the first 3-4 weeks. D. There are no restrictions on activities. You may ride in a car, shop, participate in equipment operator intermodal yard and all social activities. E. Wear the long elastic stockings (CUATE hose) 20 hours a day for 2 weeks after surgery. They can be removed several times a day for laundering and for a bath. F. You may shower, no tub baths until cleared by your doctor. SPECIAL CARE INSTRUCTIONS: VERY IMPORTANT TO READ AND REVIEW A. There are a few signs you need to watch for after you are home. Call [facility] if you notice any of the followin. Increased severe knee pain. Some pain is expected especially when you exercise. 2. Increased swelling in your leg or knee; pain or swelling of the calf muscle in either lower leg. 3. Any fluid drainage from the incision. 4. Shortness of breath or chest pain. B. Please call [facility] at if you have any concerns or questions about your operation or recovery. The doctor or his nurse will return your call promptly. C. You must take antibiotics before dental work, bladder, bowel or other surgery. Your doctor will provide you with a permanent care to carry describing this precaution. IMPORTANT: * REMEMBER TO TAKE ASPIRIN, 81 MG, TWICE DAILY FOR 4 WEEKS UNLESS OTHERWISE DIRECTED. THIS IS YOUR BLOOD THINNER. * HIGH RISK PATIENTS MAY BE PRESCRIBED A STRONGER BLOOD THINNER. THIS WILL BE PROVIDED AT DISCHARGE. * CALL IF INCREASED PAIN, REDNESS, DRAINAGE OR FEVER GREATER THAT 101. * WEAR CUATE HOSE 20 HOURS PER DAY FOR 2 WEEKS. * YOU MAY HAVE A LARGE BAND-AID LIKE DRESSING (SILVERON). THIS WILL REMAIN ON YOUR INCISION FOR 7 DAYS, THEN CAN BE REMOVED. IF INCISION IS LEAKING THROUGH DRESSING, CALL THE OFFICE . FOLLOW UP VISIT: If appointment is not already scheduled: Please call [facility] to make a follow-up appointment for 2 weeks after your surgery at . Current Hospital Diet Patient's current hospital diet: Regular Diet Discharge Diet Recommended Diet: Regular Diet Procedures Procedures Performed: Right total Knee Arthroplasty-Cemented Pending Studies Studies pending at discharge: no Laboratory Results Hemoglobin A1c Test 11/20/17 11:36 Range/Units Estimated Average Glucose 134 mg/dl Hemoglobin A1c 6.3 H 4.5-5.6 % Medical Emergencies . Who to Call and When: Medical Emergencies: If at any time you feel your situation is an emergency, please call 228 immediately. . Non-Emergent Contact Non-Emergency issues call your: Surgeon . "Provider Documentation" section prepared by Heidi Aponte. .
[2017-12-13 10:22] VITALS: BP 119/70; PULSE 68; TEMP 36.8; O2SAT 97
--- NOTE | 2017-12-13 17:10 | Progress Note ---
Internal Med Progress Note Date of Service: Dec 13, 2017. Provider Documentation: SUBJECTIVE: The patient was seen and examined. She is status post right TKA, denies to have significant pain there. She does not have any other complaints. Remains stable Denies any symptoms Has had PT this AM OBJECTIVE: Vital Signs-as noted below Exam: General-no acute distress at rest Eyes-normal ENT-normal Neck-supple Lungs-clear to auscultate bilaterally Heart-S1-S2 regular, no murmur appreciated Abdomen-benign, nontender, bowel sounds present Extremities-trace edema bilaterally Neuro-alert, awake, oriented 3 No focal sensory or motor deficit appreciated Lab data as noted below. Labs are unremarkable. ASSESSMENT & PLAN: This is a 57-year-old male with a past medical history of HTN, asthma, s/p aortic valve replacement, osteoarthritis and other medical problems listed below who is POD#0 s/p R TKA by Dr. Chadwick. R knee osteoarthritis s/p R TKA: -POD#[address] Chadwick -Pt is doing well post-operatively -Per ortho for pain control, wound care, anticoagulation and activities -Hb Stable -Participating in PT and likely to discharge home today Leukocytosis WCC -16K Likely reactive Doubt any infection Monitor-normalized HTN: -Normotensive -Continue losartan, metoprolol tartrate -controlled Asthma: -Stable. No SOB/wheezing -Cont Advair, albuterol PRN S/p aortic valve replacement: -Performed in 2008 -Completed 6 months on Coumadin -Continue home medications Mood disorder: -Cont Celexa GERD: -Cont omeprazole BPH: -Cont Proscar Vitamin D deficiency: -Cont 50,000 IU Wed, Sun DVT Ppx: Teds, SCDs Dispo: per ortho Medically stable to be discharged Vital Signs: Date Time Temp Pulse Resp B/P (MAP) Pulse Ox O2 Delivery O2 Flow Rate FiO2 12/13/17 10:22 36.8 68 18 97 Room Air 12/13/17 07:40 Room Air 12/13/17 06:21 36.8 68 18 119/70 (86) 97 Room Air 12/12/17 23:35 Room Air 12/12/17 22:50 37.0 73 16 116/68 (84) 98 Room Air Lab Results: Results Past 24 Hours Test 12/13/17 05:20 Range/Units White Blood Count 9.32 4.8-10.8 K/uL Red Blood Count 3.72 4.7-6.1 M/uL Hemoglobin 11.2 14.0-18.0 g/dL Hematocrit 31.6 42-52 % Mean Corpuscular Volume 84.9 80-100 fL Mean Corpuscular Hemoglobin 30.1 25-34 pg Mean Corpuscular Hemoglobin Concent 35.4 32-36 g/dl RDW Standard Deviation 44.5 36.4-46.3 fL RDW Coefficient of Variation 14.4 11.5-14.5 % Platelet Count 166 130-400 K/uL Mean Platelet Volume 11.5 7.4-10.4 fL Sodium Level 134 136-145 mmol/L Potassium Level 3.8 3.5-5.1 mmol/L Chloride Level 103 98-107 mmol/L Carbon Dioxide Level 24 21-32 mmol/L Anion Gap 7.0 3-11 mmol/L Blood Urea Nitrogen 20 7-18 mg/dl Creatinine 1.18 0.60-1.40 mg/dl Est Creatinine Clear Calc Drug Dose 90.2 ml/min Estimated GFR () 77.8 Estimated GFR (Non- 67.1 BUN/Creatinine Ratio 17.0 10-20 Random Glucose 166 70-99 mg/dl Calcium Level 7.9 8.5-10.1 mg/dl Magnesium Level 2.3 1.8-2.4 mg/dl
--- NOTE | 2017-12-15 10:01 | Discharge Summary ---
Orthopedic Discharge Summary Admission Date/Reason Dec 11, 2017 at 10:15 Right Knee Osteoarthritis. Discharge Date/Disposition Dec 13, 2017 Home Diagnosis Principal Diagnosis: right knee osteoarthritis Procedure(s) Performed : Right total knee arthroplasty using a [employer] MRI matched total knee arthroplasty with size 6 femur, size 5 tibia, a 12-mm posterior stabilized polyethylene and a 38-mm patella Consultations Medicine Medication Reconciliation New Medications: Ondansetron Hcl (Zofran) 8 Mg Tab 8 MG PO Q8 PRN for Nausea, #20 TAB Acetaminophen (Sb Non-Aspirin Extra Stre) 500 Mg Tab 1000 MG PO Q8H for 30 Days, #180 TAB Aspirin (Aspirin EC Low Dose) 81 Mg Ectab 81 MG PO BID for 30 Days, #60 TAB Celecoxib (Celebrex) 200 Mg Cap 200 MG PO BID, #60 CAP Oxycodone HCl (Oxycodone HCl) 5 Mg Tab 5-10 MG PO Q4H PRN for Pain, #60 TAB Senna (Senokot) 8.6 Mg Tab 17.2 MG PO HS for 14 Days, #28 TAB Continued Medications: Albuterol Hfa (Ventolin Hfa) 200 Puffs/83230 Mcg Aers 2-4 PUFFS INH Q6H PRN for SOB/Wheezing, #1 INHALER Citalopram Hydrobromide (Celexa) 20 Mg Tab 20 MG PO QPM, TAB Ergocalciferol (Vitamin D 24979 Unit) 50,000 Unit Cap 63839 UNIT PO WED/SUN, CAP Finasteride (Proscar) 5 Mg Tab 5 MG PO QPM, TAB Fluticasone Prop/Salmeterol (Advair Diskus 250/50 60 Dose) 1 Ea Aerp 1 PUFF INH BID, INHALER Gabapentin (Neurontin) 100 Mg Cap 100 MG PO BID, CAP Losartan Potassium (Cozaar) 100 Mg Tab 100 MG PO QAM, TAB Metoprolol Tartrate (Lopressor) (Lopressor) 25 Mg Tab 25 MG PO BID, TAB Multivitamin (Multivitamin) Tab 1 TAB PO QPM, 0 Refills Omeprazole (Prilosec) 20 Mg Capcr 40 MG PO QAM, CAP Discontinued Medications: Aspirin Enteric Coated (Ecotrin Or Generic) 81 Mg Tab 81 MG PO QAM, 0 Refills Admission Physical Exam As per Admitting History & Physical. Hospital Course The patient was admitted on 3.23.18 and underwent the above noted procedure. He progressed well on POD #1 and POD #2 with pain control and PT. He was d/c'd home on POD #2. Discharge Instructions Please refer to the electronic Patient Visit Report (Discharge Instructions) for additional information. ACTIVITY RECOMMENDATIONS: SELF CARE INSTRUCTIONS AFTER TOTAL KNEE REPLACEMENT A. You may need to continue a physical therapy program after discharge from the hospital. There are several options available to you. Your doctor will assist you in selecting the best one for you. 1. An out-patient facility 2 to 3 times a week for therapy or home therapy. 2. Continue working on all exercises taught to you in the hospital. Your goals should be to increase bending of your knee to 90 degrees and beyond and to fully straighten your knee. B. You may progress at your own pace from walking with a walker or crutches to a cane; then to no assistive devices. C. Make walking a part of your daily routine. Be up as much as comfortable with rest periods throughout the day. Rest with leg elevation is very important. Use the ice wrap frequently for the first 3-4 weeks. D. There are no restrictions on activities. You may ride in a car, shop, participate in envelope machine operator and all social activities. E. Wear the long elastic stockings (CUATE hose) 20 hours a day for one month after surgery. They can be removed several times a day for laundering and for a bath. F. Silverlon- This is a large adhesive bandage that contains silver ions. This helps your incision heal by fighting off bacteria and protecting it from the outside environment. You are permitted to shower with this dressing. This will remain on your incision for 7 days and then should be removed. Some visible blood or drainage through the dressing window is normal. If there is significant drainage or leaking noted before the 7 days notify your doctor's office immediately. Once removed, keep incision clean and dry. If there is any drainage or redness noted, please call your surgeon. G. You have a zipline closure. The zipline closure should remain in place for 14 days. Do NOT remove the zipline closure when the silverlon dressing is removed 7 days after surgery. SPECIAL CARE INSTRUCTIONS: VERY IMPORTANT TO READ AND REVIEW A. Take Aspirin (blood thinning medications) as directed by your doctor. If on Coumadin, have a pro-time (blood test) drawn according to your doctor's instructions. This will tell the doctor how well the Coumadin is thinning your blood. B. There are a few signs you need to watch for after you are home. Call [facility] if you notice any of the followin. Increased severe knee pain. Some pain is expected especially when you exercise. 2. Increased swelling in your leg or knee; pain or swelling of the calf muscle in either lower leg. 3. Any fluid drainage from the incision. 4. Shortness of breath or chest pain. C. Please call [facility] at if you have any concerns or questions about your operation or recovery. The doctor or his nurse will return your call promptly. D. You must take antibiotics before dental work, bladder, bowel or other surgery. Your doctor will provide you with a permanent care to carry describing this precaution. * CALL IF INCREASED PAIN, REDNESS, DRAINAGE OR FEVER GREATER THAT 101 F. * WEAR CUATE HOSE 20 HOURS PER DAY FOR 4 WEEKS. FOLLOW UP VISIT: If appointment is not already scheduled: Please call [facility] to make a follow-up appointment for 2 weeks after your surgery to have sharron removed at .
== END 2017-12-13 12:01 | disposition home or self-care (01) | DRG 470 ==
LOC: C.ACU 08:27 → C.3E 10:15 → EDBEDREQ 14:13 → ENRESERV 14:19
PROVIDERS: ADMIT Orthopaedic Surgery Sports Medicine; ATTEND Orthopaedic Surgery Sports Medicine
PROC: 0SRC0J9 Replacement of Right Knee Joint with Synthetic Substitute, Cemented, Open Approach (ICD-10-PCS; principal; 2017-12-11 10:30)
DX: M17.11 Unilateral primary osteoarthritis, right knee (principal); M24.561 Contracture, right knee; I10 Essential (primary) hypertension; J45.909 Unspecified asthma, uncomplicated; F39 Unspecified mood [affective] disorder; K21.9 Gastro-esophageal reflux disease without esophagitis; N40.0 Benign prostatic hyperplasia without lower urinary tract symptoms; E55.9 Vitamin D deficiency, unspecified; Z79.82 Long term (current) use of aspirin; Z79.899 Other long term (current) drug therapy; Z95.2 Presence of prosthetic heart valve; Z88.1 Allergy status to other antibiotic agents